=== PATIENT | male | born 1940 | race Caucasian/White ===

== ENCOUNTER 2020-11-02 10:18 | Day surgery (SDC) | payer MEDICARE, BC ==
[2020-11-02] VITALS (7 sets, daily range): BP systolic 115–136; BP diastolic 59–74; PULSE 64–77; TEMP 97.1–98.4
[~2020-11-02] VITALS: Ht 177.8 cm; Wt 74.5 kg
[2020-11-02] MEDS ORDERED: SINEMET 25/101 UDTAB PO (11:08)
[2020-11-02] MEDS ORDERED: FLOMAX 0.40.4 MG/CAP PO (11:08)
[2020-11-02] MEDS ORDERED: PRINIVIL10 MG PO (11:09)
[2020-11-02] MEDS ORDERED: MELATONIN3 M1 PO (11:10)
--- NOTE | 2020-11-02 13:30 | NUR ---
NINFA from Dr. Garay that the patient may be discharged after recovering for 1-2 hours.
--- NOTE | 2020-11-02 13:30 | NUR ---
Patient arrives to [facility] via cart, accompanied by Leonila Baird RN. He is drowsy. He awakens to voice and answers yes/no questions. Monitoring is applied - VSS and WNL on room air. Lights are dimmed for comfort.
--- NOTE | 2020-11-02 13:45 | NUR ---
VSS and WNL on room air. Patient is sleeping.
--- NOTE | 2020-11-02 14:00 | NUR ---
Patient is resting in room. Denies pain, nausea, or need. He is offered and receives water to drink.
--- NOTE | 2020-11-02 14:30 | NUR ---
VSS on room air. Patient complains of back pain. Helped him to get readjusted in the bed, put a pillow support behind his back. He states that this helps.
--- NOTE | 2020-11-02 15:00 | NUR ---
Patient states he has back pain, which he states is chronic and attributes it to being uncomfortable in the bed. Staff assists him to sit on the side of the bed, ambulate in the room, and rubs his back. He states that these things helped. He denies other pain or nausea.
--- NOTE | 2020-11-02 15:38 | NUR ---
Patient has met discharge criteria. Discharge instructions are discussed. He denies any questions and verbalizes understanding. Staff assists him to change clothing. PIV is removed with catheter intact and hemostasis achieved. He is escorted to the exit via wheelchair. His is at the exit and discharge instructions are reviewed with her as well. 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
== END 2020-11-02 15:38 | disposition home or self-care (01) ==
LOC: SDCO 10:18
DX: C24.0 Malignant neoplasm of extrahepatic bile duct (principal); G20 Parkinson's disease; Z87.891 Personal history of nicotine dependence; F41.9 Anxiety disorder, unspecified; Z20.828 Contact with and (suspected) exposure to other viral communicable diseases; C25.3 Malignant neoplasm of pancreatic duct; K83.8 Other specified diseases of biliary tract; K86.9 Disease of pancreas, unspecified
CPT/HCPCS: C1769; C2625; J2704; J7030

== ENCOUNTER 2020-11-11 19:45 | Inpatient (IN) | payer MEDICARE, BC ==
[~2020-11-11] VITALS: Ht 175.3 cm; Wt 78.4 kg
[~2020-11-11 19:45] MED LIST: FLOMAX 0.40.4 MG/CAP PO; MELATONIN3 M1 PO; PRINIVIL10 MG PO; SINEMET 25/101 UDTAB PO
[2020-11-11 20:47] LABS: HEMATOCRIT 41.4 % (42.0-52.0); HEMOGLOBIN 13.7 g/dl (13.5-18.0); MEAN CELL VOLUME 90 fl (80.0-100.0); MEAN CORPUSCULAR HEMOGLOBIN 30 pg (27.0-31.0); MEAN CORPUSCULAR HGB CONC 33 g/dl (33.0-37.0); MEAN PLATELET VOLUME 10.4 fl (7.4-10.4); PLATELET COUNT 208 K/mm3 (130-400); RED BLOOD COUNT 4.62 M/mm3 (4.20-5.60); REDCELL DISTRIBUTION WIDTH-CV 16.5 % (11.5-14.5)
[2020-11-11] MEDS ORDERED: VALIUM 5MG T5 MG/TAB PO (20:48)
[2020-11-11 20:52] LABS: ALBUMIN 2.9 gm/dL (3.5-5.0); BILIRUBIN,TOTAL 21.4 mg/dL (0.0-1.0); CREATININE, serum 0.88 (0.66-1.25); POTASSIUM 3.3 mmol/L (3.4-5.0); TOTAL PROTEIN 5.6 gm/dL (6.4-8.2)
[2020-11-11 20:55] LABS: LACTIC ACID 0.9 mmol/L (0.4-2.0)
[2020-11-11 21:49] LABS: BAND 3 % (0-10); EOSINOPHIL 2 % (0-4); LYMPHOCYTE 18 % (20.0-51.0); MYELOCYTE 2 % (0-0); NEUTROPHILS 67 % (42.0-75.2); PLATELET ESTIMATE NORMAL (NORMAL)
[2020-11-11 21:50] LABS: ANISOCYTOSIS 1+
[2020-11-11 22:56] LABS: MUCOUS Present /lpf; PH 5 (5-8); SQUAMOUS EPITHELIAL None Seen /hpf; URINE APPEARANCE Clear; URINE BACTERIA None Seen /hpf; URINE BILIRUBIN Positive (NEGATIVE); URINE BLOOD 2+ (NEGATIVE); URINE COLOR Amber; URINE GLUCOSE Negative (NEGATIVE); URINE KETONE Negative (NEGATIVE); URINE LEUKOCYTE ESTERASE Negative (NEGATIVE); URINE NITRATE Negative (NEGATIVE); URINE PROTEIN(semi-quant) Negative (NEGATIVE); URINE RBC 20-50 /hpf; URINE UROBILINOGEN >=4.0 mg/dL (NEGATIVE); URINE WBC 0-2 /hpf
[2020-11-11 23:09] LABS: COLLECTION METHOD CLEAN CATCH
[2020-11-12 06:50] LABS: HEMATOCRIT 44.5 % (42.0-52.0); HEMOGLOBIN 14.8 g/dl (13.5-18.0); MEAN CELL VOLUME 89 fl (80.0-100.0); MEAN CORPUSCULAR HEMOGLOBIN 30 pg (27.0-31.0); MEAN CORPUSCULAR HGB CONC 33 g/dl (33.0-37.0); MEAN PLATELET VOLUME 10.5 fl (7.4-10.4); PLATELET COUNT 192 K/mm3 (130-400); RED BLOOD COUNT 4.99 M/mm3 (4.20-5.60); REDCELL DISTRIBUTION WIDTH-CV 16.9 % (11.5-14.5)
[2020-11-12 07:01] LABS: BILIRUBIN,TOTAL 22.4 mg/dL (0.0-1.0); CALCIUM 9.1 mg/dL (8.4-10.2); CREATININE, serum 0.8 (0.66-1.25); POTASSIUM 3.5 mmol/L (3.4-5.0)
[2020-11-12 08:06] VITALS: BP 150/71; PULSE 73; TEMP 97.4
--- NOTE | 2020-11-12 09:00 | NUR ---
Admission assessment completed, alert/disoriented, patient is agitated and trying to get out of bed, attempting to give PO meds for pain and parkinsons, heart RRR, lungS CTA, spoke with Endo to coordinate ERCP/stent placement later today, discussed plan of care with , will continue to monitor closely
--- NOTE | 2020-11-12 12:45 | NUR ---
Patient is going down to Endoscopy for ERCP with billiary stent placement, INT started to right wrist, I have spoke to his on the phone and discussed plan of care / she is agreeable and gave consent over the phone
--- NOTE | 2020-11-12 12:49 | NUR ---
I spoke with Julisa by phone several times today. She reports that her hhusband, Stew, has had a rapid decline in his status over the last 3 days. She cannot manage his care at home currently but is hopeful that the new stent will help him regain better function. She reports that her son has been there to help her during this time of Stew's decline but he will have to return home tomorrow. We talked about options for goals of care and where care could be provided. She could have extra help at home but currently pt would require several people at a time to help with moving a repositioning. We discussed nursing homes in the area--they have used [facility] before for rehab. We also discussed consideration of hospice care depending on what their goals are. This is a new diagnosis about 2 weeks ago and is impacting the patient very quickly. Dr Johns has ok'd to visit patient today and also to talk with him. Pt is currently down for stent replacement in endo which is scheduled at 1pm. Phone consent was obtained over the phone with Rhett Schaffer RN for this procedure. Dr Figueroa's office reports that pt was a stage I-II when they last saw him and they are hopeful that replacing stent will help his situation. Please see palliative care notes
--- NOTE | 2020-11-12 14:12 | NUR ---
Plan is to Home VS SNF. Patient in surgery, sw contact [facility] . POA is the patient's sons 1. [facility] , 2 [facility] . Patient reports that the patient uses a walker inconsistent but no other DME. Patient's reports that he recently was dx with cancer and parkinson. reports that she was already looking for home health. PCP is Dr. Venu Parrish, Obtains RX from [facility]. Will continue to support family in transistion of care. reports that she would be okay with the patient home if she could take care of him and have additional supports.
--- NOTE | 2020-11-12 14:15 | NUR ---
Patient arrived back from [facility] at this time, he is alert/disoriented, vital signs stable, does not appear to be in acute pain or discomfort
--- NOTE | 2020-11-12 16:43 | NUR ---
presented to pt's room after his procedure. Initially he was calm but his agitation increased over time. Dr Johns did come and talk with his in the room and explained that we will continue supportive care at this point to see if the new stent will make any difference but if he does not start eating and drinking and remains this confused then he will probably not be able to proceed with chemotherapy--which she is not sure he would want, and that if things do not improve over the next day or so, she will probably choose for him to go to hospice house. I did make contact with Jane at [facility] and f axed a referral over for consideration while family is making up their minds about what direction they should go. This was done with Julisa, his 's permission. She reports she will call [facility] tomorrow and talk with jane herself.
--- NOTE | 2020-11-12 19:45 | NUR ---
Report received, assumed care for police shift commander. Assessment complete. Alert but not oriented. Very drowsy from earlier dose of ativan. Does not respond to commands. VS stable. Unable to swallow HS meds-pushes pill back out with tongue. No s/s of pain or discomfort noted. Right forearm IV with NS@75mls/hr-infusing without difficulty. Call light in reach/bed alarm on. Will monitor.
[2020-11-12 20:06] VITALS: BP 149/111; PULSE 121; TEMP 99.1
[2020-11-12 20:45] VITALS: BP 122/78
[2020-11-12 23:59] VITALS: BP 129/71; PULSE 81; TEMP 98.9
--- NOTE | 2020-11-13 00:20 | NUR ---
Incontinent of urine-very large-bed soaked from head to knees. Dark tyrell in color. Bedding changed-bed bath provided. Turned and repositioned with pillow support. Call light in reach/bed alarm on. Will monitor.
[2020-11-13 03:49] VITALS: BP 160/80; PULSE 95; TEMP 99.1
[2020-11-13 04:00] VITALS: BP 138/72
[2020-11-13 06:30] LABS: HEMATOCRIT 38.7 % (42.0-52.0); HEMOGLOBIN 12.9 g/dl (13.5-18.0); MEAN CELL VOLUME 88 fl (80.0-100.0); MEAN CORPUSCULAR HEMOGLOBIN 29 pg (27.0-31.0); MEAN CORPUSCULAR HGB CONC 33 g/dl (33.0-37.0); MEAN PLATELET VOLUME 10.4 fl (7.4-10.4); PLATELET COUNT 200 K/mm3 (130-400); RED BLOOD COUNT 4.41 M/mm3 (4.20-5.60); REDCELL DISTRIBUTION WIDTH-CV 16.6 % (11.5-14.5)
[2020-11-13 06:39] LABS: INR 0.9 (0.8-3.0); PROTHROMBIN TIME 10.3 SECONDS (9.7-12.8)
[2020-11-13 06:43] LABS: ALBUMIN 2.6 gm/dL (3.5-5.0); BILIRUBIN,TOTAL 20.8 mg/dL (0.0-1.0); CALCIUM 8.5 mg/dL (8.4-10.2); CREATININE, serum 0.78 (0.66-1.25); MAGNESIUM 2.5 mg/dL (1.6-2.3); POTASSIUM 3.3 mmol/L (3.4-5.0); TOTAL PROTEIN 5.2 gm/dL (6.4-8.2)
--- NOTE | 2020-11-13 07:25 | NUR ---
PATIENT ASLEEP, NOT RESPONSIVE TO VOICE, APPEAR COMFORTABLE IN BED.
[2020-11-13 07:31] LABS: ANISOCYTOSIS 1+; BAND 4 % (0-10); EOSINOPHIL 1 % (0-4); LYMPHOCYTE 14 % (20.0-51.0); PLATELET ESTIMATE NORMAL (NORMAL)
[2020-11-13 07:32] LABS: METAMYELOCYTE 2 % (0-0); MYELOCYTE 1 % (0-0); NEUTROPHILS 69 % (42.0-75.2)
[2020-11-13 08:30] VITALS: BP 138/65; PULSE 90; TEMP 98.3
--- NOTE | 2020-11-13 10:31 | NUR ---
Initial visit; Patient appeared distressed even when nurse attempted to calm him. Branding Machine Tender talked with patient about his needs, his health and God's plan for him. Branding Machine Tender mentioned his Taoist heritage and his special connection with God. Patient mumbled incoherently but seemed to mumble responses rather than rambling. Perhaps Stew heard and understood Branding Machine Tender's visit and prayer.
--- NOTE | 2020-11-13 12:05 | NUR ---
Patient alert, not oriented. mumble words. skin and sclera appear yellow. k+ 3.3, replacing per protocol. called patient's spouse on the cell #, no answer. Patient resting in bed at this time, several attempt to exist the bed. bed alarm on.
[2020-11-13 13:09] VITALS: BP 101/79; PULSE 58; TEMP 99.6
--- NOTE | 2020-11-13 16:06 | NUR ---
Head Turbine Operator spoke with RN, Leah who advised she received a phone call from patient's who advised she would like to pursue placement at the [facility]. Cheri, Palliative RN faxed referral yesterday. NAOMI followed up with [facility] who advised they can accept and could look at admitting tomorrow if ready.
[2020-11-13 17:38] VITALS: BP 127/59; PULSE 56; TEMP 98.9
--- NOTE | 2020-11-13 18:38 | NUR ---
Rn spoke with patient's spouse, she said she spoke with [facility], family decided to take patient their. RN discuss with bakery worker, Josie. Josie said she will followup with hospice home. Patient was turned q2h. Patient resting comfortably in bed. replaced potassium with total of 60meq IV KCL.
--- NOTE | 2020-11-13 19:00 | NUR ---
bedside shift report received from BELGICA Lynn, patient has removed his gown and pulled out his IV, care provided but heis very confused and wanting everyone to leave his room, attempt to reorient but does not comprehend
--- NOTE | 2020-11-13 19:20 | NUR ---
IV restarted in left hand and ativan 1mg given by BELGICA Lynn
--- NOTE | 2020-11-13 19:44 | NUR ---
patient removed IV on his right forearm. BELGICA Ramos placed 20g on Left forearm. Patient was given Ativan 1mg IV. resting in bed at this time.
--- NOTE | 2020-11-13 19:45 | NUR ---
resting quietly in bed
--- NOTE | 2020-11-13 20:30 | NUR ---
patient is resting in bed, talks out loud at times, DISBURSING AGENT attempted to check vital signs and he was uncoopertive and swinging his arms
--- NOTE | 2020-11-13 22:00 | NUR ---
continues to rest quietly in bed with eyes closed, resp quiet and easy
--- NOTE | 2020-11-13 22:30 | NUR ---
continues to rest quietly, assessment completed, see intervention for further info
[2020-11-14 00:21] VITALS: BP 139/59; PULSE 59; TEMP 97.3
--- NOTE | 2020-11-14 00:22 | NUR ---
is starting to become restless and moving about in bed, lights off and will see if goes back to sleep
--- NOTE | 2020-11-14 00:30 | NUR ---
is trying to pull off mitts and throwing legs over the end of the bed, medicated with ativan 0.5mg IV
--- NOTE | 2020-11-14 01:04 | NUR ---
remains restless in bed, incontinent of large amount urine and incontinent care provided,
--- NOTE | 2020-11-14 02:20 | NUR ---
continues to call out and try to take off mitts and throws legs over side of bed, medicated with ativan 1mg slow IV
--- NOTE | 2020-11-14 03:19 | NUR ---
remains awake but is quiet and not pulling at mitts or trying to get out of bed
--- NOTE | 2020-11-14 05:00 | NUR ---
remains awake and calling out at times
[2020-11-14 05:30] VITALS: BP 135/58; PULSE 51; TEMP 97.7
--- NOTE | 2020-11-14 06:14 | NUR ---
continues to talk at intervals, lab ws in and he was coopertive and blood was drawn
--- NOTE | 2020-11-14 06:22 | NUR ---
incontinent of urine and care provided, he was cooperative for this
--- NOTE | 2020-11-14 06:45 | NUR ---
PT LAYING IN BED NO CONCERNS AT THIS TIME. PER REPORT PT SHOULD GO TO HOSPICE HOUSE TODAY.
--- NOTE | 2020-11-14 06:50 | NUR ---
bedside shift report given to BELGICA Funez
[2020-11-14 07:33] VITALS: BP 160/57; PULSE 54; TEMP 97.4
[2020-11-14] MEDS ORDERED: ALBUTEROL0.83 MG/ML IH (09:35)
[2020-11-14] MEDS ORDERED: DULCOLAX S10 MG/SUPP RC (09:36)
[2020-11-14] MEDS ORDERED: SYSTANE 0.3-0.1 EACH OP (09:36)
[2020-11-14] MEDS ORDERED: TRANSDERM-0.5 MG/21 TD (09:36)
[2020-11-14] MEDS ORDERED: ROXANOL 20MG20 MG/ML SL (09:37)
[2020-11-14] MEDS ORDERED: ATIVAN 1MG T1 MG/TAB PO (09:37)
[2020-11-14 10:59] VITALS: BP 130/67; PULSE 62; TEMP 97.6
--- NOTE | 2020-11-14 15:31 | NUR ---
Electorate Officer collaborated with Hospitalist who advised patient is ready to be discharged to the [facility] today. NAOMI contacted Geraldine at [facility] who advised they can admit patient at 1300. NAOMI set up transport with [facility] and pharmacy picking tech time will be 1245. NAOMI contacted patient's , A[facility] who is in agreement with discharge to [facility] and gave verbal consent on transfer authorization form. NAOMI placed completed EMS forms on patient's chart. NAOMI also faxed discharge orders and meds to Geraldine at [facility]. No additional needs at this time.
== END 2020-11-14 15:15 | disposition hospice, home (50) | DRG 919 ==
LOC: COL.ER 19:45 → MEDICAL 23:27
PROVIDERS: Internal Medicine; Internal Medicine Gastroenterology; Nurse Practitioner Primary Care; Physician Assistant; ADMIT Family Medicine
PROC: 0F798DZ Dilation of Common Bile Duct with Intraluminal Device, Via Natural or Artificial Opening Endoscopic (ICD-10-PCS; 2020-11-12)
PROC: 0FPB8DZ Removal of Intraluminal Device from Hepatobiliary Duct, Via Natural or Artificial Opening Endoscopic (ICD-10-PCS; principal; 2020-11-12 13:00)
DX: T85.590A Other mechanical complication of bile duct prosthesis, initial encounter (principal); G93.41 Metabolic encephalopathy; C25.9 Malignant neoplasm of pancreas, unspecified; F05 Delirium due to known physiological condition; E87.0 Hyperosmolality and hypernatremia; C24.0 Malignant neoplasm of extrahepatic bile duct; E46 Unspecified protein-calorie malnutrition; N40.0 Benign prostatic hyperplasia without lower urinary tract symptoms; I10 Essential (primary) hypertension; F41.9 Anxiety disorder, unspecified; Z51.5 Encounter for palliative care; G20 Parkinson's disease; E86.0 Dehydration; R31.9 Hematuria, unspecified; E87.6 Hypokalemia; E87.8 Other disorders of electrolyte and fluid balance, not elsewhere classified; R62.7 Adult failure to thrive; Z87.891 Personal history of nicotine dependence; Z68.25 Body mass index [BMI] 25.0-25.9, adult; Y84.8 Other medical procedures as the cause of abnormal reaction of the patient, or of later complication, without mention of misadventure at the time of the procedure
CPT/HCPCS: 99232-AI; 99233-AI; 99239; C1769; C2625; J1650; J2060; J2250; J2704; J3480; J3486; J7030; Q9967